=== PATIENT | male | born 1975 | race Caucasian/White ===

== ENCOUNTER 2017-04-02 22:55 | Inpatient (IN) | payer BC ==
[~2017-04-02] VITALS: Ht 185.4 cm; Wt 120.9 kg
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
[2017-04-02 23:36] LABS: BASOPHIL # 0.1 K/uL (0.0-0.2); BASOPHIL % 0.4 %; EOSINOPHIL # 0.1 K/uL (0.0-0.5); EOSINOPHIL % 0.9 %; HEMATOCRIT 48.5 % (37.0-53.0); HEMOGLOBIN 16.5 g/dL (12.0-17.0); IMMATURE GRANULOCYTE # 0.1 K/uL (0.0-0.3); IMMATURE GRANULOCYTE % 0.8 %; LYMPHOCYTE # 2.6 K/uL (0.8-4.0); LYMPHOCYTE % 17.3 %; MCH 31.4 pg (27.0-34.0); MCV 92.2 fl (83.0-98.0); MONOCYTE # 0.9 K/uL (0.0-1.0); MONOCYTE % 5.9 %; MPV 9.5 fl (9.4-12.4); NEUTROPHIL # (ANC) 11.2 K/uL (1.4-9.0); NEUTROPHIL % 74.7 %; NRBC % 0 /100WBC (0-0.00); PLATELET COUNT 288 K/uL (150-450); RBC 5.26 M/uL (4.00-6.00); RDW-CV 12.4 % (11.9-14.6)
[2017-04-02 23:47] LABS: INR - (THERAPEUTIC) 0.99 (0.92-1.07); PROTIME 10.4 SECONDS (9.8-11.4); PTT 23 SECONDS (25-32)
[2017-04-02 23:57] LABS: ALBUMIN 4.4 gm/dL (3.5-5.0); ALK PHOS 65 IU/L (33-138); ALT 239 IU/L (12-78); ANION GAP 17.7 (10.0-19.0); AST 172 IU/L (10-40); BLOOD UREA NITROGEN 16 mg/dL (6-24); CALCIUM 8.8 mg/dL (8.5-10.5); CHLORIDE 107 mMol/L (96-110); CO2 21 mMol/L (22-32); CREATININE 1.4 mg/dL (0.6-1.3); ESTIMATED GFR (MDRD EQUATION) 55; POTASSIUM 3.7 mMol/L (3.7-5.1); SODIUM 142 mMol/L (135-145); TOTAL BILIRUBIN 0.5 mg/dL (0.0-1.5)
[2017-04-03 00:04] LABS: CPK 1036 IU/L (35-332); TOTAL PROTEIN 9.4 g/dL (6.0-8.4)
[2017-04-03 00:41] LABS: BILIRUBIN URINE NEGATIVE (NEGATIVE); BLOOD URINE 250 /UL (NEGATIVE); GLUCOSE URINE NEGATIVE (NEGATIVE); KETONE URINE NEGATIVE (NEGATIVE); LEUKOCYTES URINE NEGATIVE /UL (NEGATIVE); NITRITE URINE NEGATIVE (NEGATIVE); PROTEIN URINE 30 mg/dL (NEGATIVE); UROBILINOGEN URINE NORMAL (NORMAL)
[2017-04-03 00:47] LABS: COLOR URINE YELLOW (YELLOW); TURBIDITY URINE CLEAR (CLEAR)
[2017-04-03 01:00] LABS: WBC URINE NEGATIVE #/HPF (NEGATIVE)
[2017-04-03 01:01] LABS: BACTERIA URINE NEGATIVE (NEGATIVE); HYALINE CAST URINE 0-2 #/LPF (NEGATIVE)
--- NOTE | 2017-04-03 05:53 | NUR ---
Significant Event: PT UP TO UNIT FROM ER APPRX 0230. PT C/O PAIN TO R SHOULDER AND RADIATES TO CHEST AND BACK. 1L NC ON PATIENT. INFORMED TO TAKE DEEP BREATHS AND USE IS. C/O PAIN 10/10 WITH MOVEMENT. AT BS. ICE AND SLING TO R ARM. Follow up:XR AND CONT TO MONITOR, MINIMIZE PAIN
--- NOTE | 2017-04-03 16:57 | NUR ---
Significant Event: A/O X 3. RT. ARM IN SLING. NOTED ON X-RAY A SEPARATION. AFEBRILE. HR SR IN 70-80'S. SATS 94% ON ROOM AIR. UP WALKING IN HALLS. SHOWER THIS AFTERNOON. AT BEDSIDE. SL IV. ENCOURAGED TO KEEP DOING I.S. Q 1 HOUR. PERCOCET FOR PAIN CONTROL. Follow up: POSSIBLE DISM. TOMORROW.
--- NOTE | 2017-04-04 04:37 | NUR ---
Significant Event:VSS/RA. Pt uses IS appropriately. Encouraged to cough and deep breathe. Pt c/o pain to R shoulder and ribs. Zofran given for nausea. Pt requesting physician note for work and anti-nausea med to go home with. Pt up ambulating in hallways w/spouse. Follow up: dismissal 04/04
[2017-04-04] MEDS ORDERED: PERCOCET 5-3251 EACH PO ×2 (06:51→09:42)
--- NOTE | 2017-04-04 10:12 | NUR ---
DISM.NOTE: A/O X 3. AT BEDSIDE. REVIEW OF MEDICATION, WITH HANDOUT OUT AND SIDE EFFECTS DISCUSSED. PRESCRIPTION GIVEN. DIET ACTIVITY FOLLOW UP APPT. WORK RELEASE GIVEN PT AND VOICED UNDERSTANDING
== END 2017-04-04 10:10 | disposition disaster alternative care site (69) | DRG 183 ==
LOC: GACC 22:55 → GPCU 04-03 01:24
PROVIDERS: Family Medicine; ADMIT Surgery
DX: S22.41XA Multiple fractures of ribs, right side, initial encounter for closed fracture (principal); S27.2XXA Traumatic hemopneumothorax, initial encounter; T79.7XXA Traumatic subcutaneous emphysema, initial encounter; V89.0XXA Person injured in unspecified motor-vehicle accident, nontraffic, initial encounter; S43.401A Unspecified sprain of right shoulder joint, initial encounter
CPT/HCPCS: G0480; J2270; J2405; J3010; J7030; Q9967

== ENCOUNTER → 2017-05-05 | Outpatient (CLI) | payer BC ==
[~2017-05-05] MED LIST: COLACE100 MG PO; NORCO 5-325 TA1 EACH PO; PERCOCET 5-3251 EACH PO
== END | disposition disaster alternative care site (69) ==
LOC: GRAD 10:21
DX: N28.89 Other specified disorders of kidney and ureter (principal)
CPT/HCPCS: A9577

== ENCOUNTER 2017-05-26 05:11 | Inpatient (IN) | payer BC ==
[~2017-05-26] VITALS: Ht 185.4 cm; Wt 118.4 kg
--- NOTE | ~2017-05-26 | OR ---
PATIENT'S NAME: SASCHA CAZARES [facility] AGE: 42 Y [address] ROOM: [place] [address] LOCATION: [facility] ADMIT DATE: 05/26/2017 OR/Procedure Report DISCHARGE DATE: FAMILY PHYSICIAN: Phill Newby MD ATTENDING PHYSICIAN: CRYS CASTANEDA SURGEON: Crys Castaneda MD TRACK WALKER: Tommie Leahy MD. DATE OF PROCEDURE: 05/26/2017 PREOPERATIVE DIAGNOSIS: Right renal mass. POSTOPERATIVE DIAGNOSIS: Right renal mass. OPERATION PERFORMED: 1. Robotic-assisted right laparoscopic partial nephrectomy. 2. Intraoperative right renal ultrasound. ANESTHESIA ADMINISTERED: General endotracheal anesthesia. INDICATIONS FOR PROCEDURE: The patient is a pleasant 42-year-old male who was recently incidentally noted to have an enhancing mass of his right kidney. The patient was explained the risks, benefits, indications, and alternatives to above procedure and wished to proceed and consented freely. DESCRIPTION OF OPERATION: The patient was brought back to the operating room where he was placed on the OR table in the supine position. A surgical time- out was called where patient identification, surgical site, and procedure were then verified. We also did verify that he received an IV cephalosporin antibiotic within an hour of beginning the procedure. The patient then underwent successful administration of general endotracheal anesthesia. We did place a Cook catheter using sterile technique, which was a 16-Pakistani Cook catheter to gravity drainage. The patient was then moved and placed in a modified right flank position. All pressure points were carefully padded. His abdomen was then prepped and draped in the usual sterile fashion. I then made a 12-mm incision just lateral and cephalad to his umbilicus. The rectus fascia was grasped and we pierced the peritoneum with a Veress needle. The peritoneum was insufflated to 15 mmHg. I then passed a 12-mm non-bladed trocar through this site easily into the peritoneum and immediately passed the laparoscope. Once I was sure that there was no injury to the internal organs, I then placed 4 additional trocars. These were 8 mm trocars placed all lateral to his rectus muscle and placed under direct visualization. This was placed in the routine position for the da Shanel Xi robotic technique. The da Shanel Xi robot was then docked and used for the remainder of the case. I then generally surveyed his abdomen and there were no gross abnormalities detected on initial inspection. I then began by first incising the peritoneum lateral PATIENT'S NAME: SASCHA CAZARES [facility] AGE: 42 Y [address] ROOM: [address] [place] [address] LOCATION: [facility] ADMIT DATE: 05/26/2017 OR/Procedure Report DISCHARGE DATE: FAMILY PHYSICIAN: Phill Newby MD ATTENDING PHYSICIAN: CRYS CASTANEDA to the ascending colon, which was swept medially. I then Kocherized the duodenum. I did place an additional 5 mm trocar to use for liver retraction. I was now able to easily expose the inferior vena cava and identified the right renal vein. I did identify a gonadal vein entering the inferior vena cava, which was spared. I then continued in this plane until I was able to dissect and identify the ureter. I then carried this dissection underneath the ureter and along the psoas muscle bringing the dissection back up cephalad again until I was able to identify a single renal artery. I then mobilized the kidney and identified the exophytic posterior and inferior pole renal mass. We then administered 12.5 g of mannitol and clamped the renal artery. The tumor was then excised sharply. We did not appear to enter the collecting system. After the mass was removed, we oversewed the open venous structures using a running 3-0 V-Loc suture. We then used a sliding clip technique and an 0 Vicryl suture to reapproximate the renal capsule. Once this was accomplished, we removed the vascular clamps for a warm ischemia time of approximately 17 minutes. An additional 12.5 g of mannitol had also been administered. Hemostasis was inspected, for which appeared excellent. Of note, prior to excision of the tumor, I performed a renal ultrasound using the laparoscopic probe through our nurse practitioner physicians assistant port site. My interpretation was that the tumor did not extend into the collecting system and there was no evidence of any hydronephrosis or any other renal abnormalities on ultrasound. The ultrasound was also helped to delineate our margins prior to excising the tumor. I then reapproximated the Gerota's fascia over the defect and I was satisfied with hemostasis. We then retrieved the renal mass which was placed in an EndoCatch bag which was then drawn up through the 12-mm port site. We had also placed a round TETO drain to the right lower quadrant 8 mm port site and this was carefully placed in the right pericolic gutter. I then closed the 12-mm umbilical port site using a heavy permanent suture in a running fashion. All trocars were then removed. All incision sites were copiously irrigated and local anesthetic was then infiltrated around the incision sites. The skin incisions were then closed using a 4-0 Monocryl subcuticular sutures for these incision sites. Dermabond was then applied to the skin. The patient was then taken out of the right flank pain where he was then awoken from general anesthesia, extubated, then transferred to the recovery bed and transported to the recovery room in good condition. COMPLICATIONS: None. ESTIMATED BLOOD LOSS: 150 mL. SPECIMENS: Right renal mass. DRAINS: Indwelling Cook catheter and TETO drain to bulb suction. FOLLOWUP PLAN: We will plan to admit the patient overnight for observation PATIENT'S NAME: SASCHA CAZARES [facility] AGE: 42 Y [address] ROOM: [place] [address] LOCATION: [facility] ADMIT DATE: 05/26/2017 OR/Procedure Report DISCHARGE DATE: FAMILY PHYSICIAN: Phill Newby MD ATTENDING PHYSICIAN: CRYS CASTANEDA with possible discharge home on the postoperative day #2. CRYS CASTANEDA MD GP/modl /[id number] CC: Phill Newby MD d: 05/26/17 1915 t: 06/01/17 0754, OPERATIVE SUMMARY
[~2017-05-26 05:11] MED LIST changes: -COLACE100 MG PO; -NORCO 5-325 TA1 EACH PO
[2017-05-26 06:08] LABS: BASOPHIL % 0.5 %; EOSINOPHIL # 0.2 K/uL (0.0-0.5); EOSINOPHIL % 2.8 %; HEMATOCRIT 45.8 % (37.0-53.0); IMMATURE GRANULOCYTE % 0.2 %; LYMPHOCYTE # 1.9 K/uL (0.8-4.0); LYMPHOCYTE % 28.4 %; MCH 31.6 pg (27.0-34.0); MCHC 34.9 gm/dL (32.0-36.5); MCV 90.3 fl (83.0-98.0); MONOCYTE # 0.8 K/uL (0.0-1.0); MONOCYTE % 12.2 %; MPV 9.4 fl (9.4-12.4); NEUTROPHIL # (ANC) 3.7 K/uL (1.4-9.0); NEUTROPHIL % 55.9 %; NRBC % 0 /100WBC (0-0.00); RBC 5.07 M/uL (4.00-6.00); RDW-CV 12.4 % (11.9-14.6); WBC 6.5 K/uL (4.0-11.0)
[2017-05-26 06:09] LABS: PLATELET COUNT 215 K/uL (150-450)
[2017-05-26 06:26] LABS: ALBUMIN 3.5 gm/dL (3.5-5.0); ALK PHOS 71 IU/L (33-138); ALT 117 IU/L (12-78); ANION GAP 10.5 (10.0-19.0); AST 86 IU/L (10-40); BLOOD UREA NITROGEN 12 mg/dL (6-24); CALCIUM 9.1 mg/dL (8.5-10.5); CHLORIDE 104 mMol/L (96-110); CO2 26 mMol/L (22-32); POTASSIUM 3.5 mMol/L (3.7-5.1); SODIUM 137 mMol/L (135-145); TOTAL PROTEIN 8.1 g/dL (6.0-8.4)
--- NOTE | 2017-05-26 16:34 | NUR ---
AAOx3. Cooperative with cares. Up w/SBA and GB w/steady gait in hallway. Tolerating regular diet well. IVF to LFA@120ml/hr; s/l in a.m. Cook draining yellow urine. Pull in a.m. Small abdominal surgical sites x6 glued w/TETO draining sanguinous fluid. Gave Morphine w/relief. Family at bedside. VSS, afebrile. C/O R)rib pain from previous fracture also. IS at bedside; encourage use.
[2017-05-27 05:35] LABS: BASOPHIL % 0.2 %; EOSINOPHIL % 0.2 %; HEMATOCRIT 42.9 % (37.0-53.0); HEMOGLOBIN 14.3 g/dL (12.0-17.0); IMMATURE GRANULOCYTE # 0.1 K/uL (0.0-0.3); IMMATURE GRANULOCYTE % 0.5 %; LYMPHOCYTE # 1.8 K/uL (0.8-4.0); LYMPHOCYTE % 13.5 %; MCH 31.2 pg (27.0-34.0); MCHC 33.3 gm/dL (32.0-36.5); MCV 93.5 fl (83.0-98.0); MONOCYTE # 1.3 K/uL (0.0-1.0); MONOCYTE % 9.9 %; MPV 9.4 fl (9.4-12.4); NEUTROPHIL % 75.7 %; NRBC % 0 /100WBC (0-0.00); PLATELET COUNT 219 K/uL (150-450); RBC 4.59 M/uL (4.00-6.00); RDW-CV 12.6 % (11.9-14.6); WBC 13.2 K/uL (4.0-11.0)
[2017-05-27 05:50] LABS: ANION GAP 12.9 (10.0-19.0); CALCIUM 8.4 mg/dL (8.5-10.5); CREATININE 1.2 mg/dL (0.6-1.3); POTASSIUM 3.9 mMol/L (3.7-5.1)
--- NOTE | 2017-05-27 07:05 | NUR ---
Significant Event: Patient is alert and oriented x 3. VSS on room air. Lap sites x 5, glued. TETO drain pulled by this am at 0615. TETO had 20 mls out. Cook pulled at 0400 this am. Up independently. Magnet given for pain last at 0300. at the bedside. Patient is pleasant and cooperative with cares. Follow up: Possible dismissal to home today.
[2017-05-27] MEDS ORDERED: COLACE100 MG PO (08:41)
[2017-05-27] MEDS ORDERED: NORCO 5-325 TA1 EACH PO (08:45)
--- NOTE | 2017-05-27 09:32 | NUR ---
D:Orders received for patient to be dismissed later today. I:Dismissal instructions were prepared and reviewed with the patient by the virtual nurse using the computer technology. The following information was reviewed with the patient: diet and activity recommendations for home, dressing/incisional care for home, importance of incentive spirometer use at home, abnormal s/s to monitor for and to report to MD if occur, s/s of infection to monitor for, new prescription medications, and follow up appointment with Dr. Castaneda for July 08. Krames teaching given to and reviewed with patient on the following topics: Discharge Instructions for Nephrectomy, Sublette, Colace and Preventing DVT After Surgery. Discussed Dr. Grace' specific orders (weight restriction, soaking in tub or pool restrictions) that differ from instructions on Krames sheet. R:The patient verbalized understanding of above teaching and denied further questions at this point in time. P:The primary nurse is to call Dr. Castaneda with an update at 11:45 as to how the pt is doing and then if all is well, the patient will be dismissed. The patient's primary nurse, Anne Marie PIERCE, was informed that the dismissal teaching had been reviewed with the patient and he would be ready when further orders received. Clint PIERCE
--- NOTE | 2017-05-27 13:08 | NUR ---
D: PATIENT VITAL SIGNS STABLE PATIENT AFEBRILE. PATIENT VOIDING WITHOUT DIFFICULTY AFTER LEBRON REMOVED. PATIENT PAIN CONTROLLED WITH NORCO. INCISIONS TO ABDOMEN INTACT WITH GLUE, TETO SITE CLOSED WITH STERISTRIPS NO DRAINAGE NOTED. PATIENT TOLERATING INTAKE AND OUTPUT ADEQUATE. I: DISCHARGE INSTRUCTIONS WITH MEDICATION EDUCATION PROVIDED TO PATIENT AND VIA VIRTUAL NURSE R: PATIENT AND STATE UNDERSTANDING OF INSTRUCTIONS, DENY QUESTIONS. P: CONTINUE WITH DISCHARGE ORDERED.
== END 2017-05-27 12:05 | disposition disaster alternative care site (69) | DRG 660 ==
LOC: GMSU 05:11 → GSDC 05:11 → EDSTATUS 09:00 → GMSU 11:57 → GSDC 11:58 → GMSU 05-27 12:05 → GSDC 05-27 12:05
PROVIDERS: ADMIT Urology
PROC: 8E0W4CZ Robotic Assisted Procedure of Trunk Region, Percutaneous Endoscopic Approach (ICD-10-PCS; principal; 2017-05-26)
PROC: 0TB04ZZ Excision of Right Kidney, Percutaneous Endoscopic Approach (ICD-10-PCS; principal; 2017-05-26)
DX: N28.89 Other specified disorders of kidney and ureter (principal); C64.1 Malignant neoplasm of right kidney, except renal pelvis; E66.9 Obesity, unspecified; Z68.34 Body mass index [BMI] 34.0-34.9, adult; K21.9 Gastro-esophageal reflux disease without esophagitis; Z87.81 Personal history of (healed) traumatic fracture; F17.220 Nicotine dependence, chewing tobacco, uncomplicated
CPT/HCPCS: J0690; J1100; J2001; J2250; J2270; J2405; J3010; J7030